=== PATIENT | male | born 1980 | race Two or more races ===

== ENCOUNTER 2021-12-09 19:54 | Inpatient (IN) | payer SELFPAY ==
[~2021-12-09] VITALS: Ht 185.4 cm; Wt 102.5 kg
[2021-12-09 20:24] LABS: BASOPHILS % 0.2 % (0.0-2.0); EOSINOPHILS % 1.3 % (0.0-5.0); HEMATOCRIT. 45.3 % (42.0-52.0); HEMOGLOBIN. 14.3 g/dL (14.0-18.0); LYMPHOCYTES % 26.8 % (20.0-50.0); MEAN CORPUSCULAR HEMOGLOBIN 25.9 pg (28.0-32.0); MEAN CORPUSCULAR VOLUME 81.9 fL (80.0-94.0); MEAN PLATELET VOLUME 9.3 fl (7.4-10.4); MONOCYTES % 5.2 % (2.0-8.0); NEUTROPHILS % 66.5 % (40.0-76.0); PLATELET 243 x1000/uL (130-400); RED BLOOD CELL COUNT 5.53 mill/uL (4.7-6.1); RED CELL DISTRIBUTION WIDTH 14.5 % (11.6-14.6)
[2021-12-09 20:35] LABS: CHLORIDE 108 mEq/L (98-107)
[2021-12-09 20:41] LABS: ETHANOL BLOOD < 10 mg/dL
[2021-12-09 21:16] LABS: CREATINE KINASE 1069 IU/L (39-308)
[2021-12-09] MEDS ORDERED: IOHEXOL-350 100 ML BOTTLE ONE (21:30)
[2021-12-09 22:16] LABS: CLARITY URINE CLEAR (CLEAR); COLOR URINE YELLOW (YELLOW); KETONES URINE NEGATIVE (NEGATIVE); LEUKOCYTE ESTERASE URINE NEGATIVE (NEGATIVE); NITRITE URINE NEGATIVE (NEGATIVE); OCCULT BLOOD URINE NEGATIVE (NEGATIVE); PH URINE 7.5 (4.5-8.0); PROTEIN URINE NEGATIVE (NEGATIVE); SPECIFIC GRAVITY URINE 1.033 (1.005-1.030)
[2021-12-09 22:25] LABS: *AMPHETAMINES SCREEN URINE NEGATIVE (NEGATIVE); *BARBITURATES SCREEN URINE NEGATIVE (NEGATIVE); *BENZODIAZEPINES SCREEN URINE NEGATIVE (NEGATIVE); *COCAINE SCREEN URINE NEGATIVE (NEGATIVE)
[2021-12-09 22:26] LABS: CANNABINOID URINE SCREEN NEGATIVE (NEGATIVE); METHADONE URINE SCREEN NEGATIVE (NEGATIVE); OPIATES URINE SCREEN NEGATIVE (NEGATIVE); PHENCYCLIDINE URINE SCREEN NEGATIVE (NEGATIVE)
[2021-12-09] MEDS ORDERED: ASPIRIN 325MG EC TABLET PO ONE (23:00)
[2021-12-09] MEDS ORDERED: *NO ASPIRIN X 24 HOURS XX SCH (23:30)
[2021-12-09] MEDS ORDERED: ALTEPLASE 100MG/VIAL IV STA (23:31)
[2021-12-09] MEDS ORDERED: ALTEPLASE IV STA (23:31)
[2021-12-09] MEDS ORDERED: ASPIRIN 81MG TABLET PO ONE (23:45)
[2021-12-10] VITALS (84 sets, daily range): BP systolic 110–223; BP diastolic 56–162
[2021-12-10] MEDS ORDERED: ALTEPLASE 50MG/VIAL IV SCH
[2021-12-10] MEDS ORDERED: *NO ASPIRIN X 24 HOURS XX SCH
[2021-12-10] MEDS ORDERED: ALTEPLASE 100MG/VIAL IV SCH
[2021-12-10] MEDS ORDERED: ONDANSETRON HCL 4MG/2ML INJ IV PRN (03:15)
[2021-12-10] MEDS: ACETAMINOPHEN 325MG TABLET PO PRN ×2 (05:03→16:09)
[2021-12-10] MEDS: CLONIDINE 0.1MG TABLET PO PRN ×2 (05:04→16:16)
[2021-12-10 06:06] LABS: BASOPHILS % 0.5 % (0.0-2.0); EOSINOPHILS % 1.8 % (0.0-5.0); HEMATOCRIT. 43.9 % (42.0-52.0); HEMOGLOBIN. 14.3 g/dL (14.0-18.0); LYMPHOCYTES % 37.2 % (20.0-50.0); MEAN CORPUSCULAR HEMOGLOBIN 25.9 pg (28.0-32.0); MEAN CORPUSCULAR VOLUME 79.7 fL (80.0-94.0); MEAN PLATELET VOLUME 9.6 fl (7.4-10.4); MONOCYTES % 6.6 % (2.0-8.0); NEUTROPHILS % 53.9 % (40.0-76.0); PLATELET 232 x1000/uL (130-400); RED BLOOD CELL COUNT 5.51 mill/uL (4.7-6.1); RED CELL DISTRIBUTION WIDTH 14.7 % (11.6-14.6)
[2021-12-10 06:24] LABS: CHLORIDE 108 mEq/L (98-107)
[2021-12-10 06:31] LABS: LDL CHOLESTEROL 120 mg/dL (5-100)
[2021-12-10 06:33] LABS: HDL CHOLESTEROL 34 mg/dL (40-59)
[2021-12-10] MEDS: PANTOPRAZOLE SODIUM 40 MG/VIAL IV SCH (08:50)
[2021-12-10] MEDS ORDERED: IPRATROPIUM/ALBUTEROL 0.5-3(2.5)MG/3ML NEB NEB PRN (09:30)
[2021-12-10] MEDS ORDERED: NITROGLYCERIN 0.4MG TABLET SL SL PRN (09:30)
[2021-12-10] MEDS ORDERED: MAGNESIUM/ALUMINUM HYDROXIDE/SIMETHICONE 30ML UDC PO PRN (09:30)
[2021-12-10] MEDS ORDERED: ZOLPIDEM TARTRATE 5MG TABLET PO PRN (09:30)
[2021-12-10] MEDS ORDERED: GUAIFENESIN 200MG/10ML SUGAR FREE UDC PO PRN (09:30)
[2021-12-10] MEDS ORDERED: DOCUSATE SODIUM 100MG CAPSULE PO PRN (09:30)
[2021-12-10] MEDS: AMLODIPINE 5MG TABLET PO SCH (10:00)
[2021-12-10 18:08] LABS: CREATINE KINASE MB FRACTION 2.5 ng/mL (0.5-3.6)
[2021-12-10] MEDS: ATORVASTATIN CALCIUM 40MG TABLET PO SCH (20:08)
[2021-12-11] VITALS (47 sets, daily range): BP systolic 122–196; BP diastolic 57–130
[2021-12-11 00:29] LABS: CREATINE KINASE MB FRACTION 1.8 ng/mL (0.5-3.6)
[2021-12-11 06:22] LABS: BASOPHILS % 0.4 % (0.0-2.0); EOSINOPHILS % 1.9 % (0.0-5.0); HEMATOCRIT. 44.2 % (42.0-52.0); HEMOGLOBIN. 14.3 g/dL (14.0-18.0); LYMPHOCYTES % 28.8 % (20.0-50.0); MEAN CORPUSCULAR HEMOGLOBIN 25.8 pg (28.0-32.0); MEAN CORPUSCULAR VOLUME 79.7 fL (80.0-94.0); MEAN PLATELET VOLUME 9.7 fl (7.4-10.4); MONOCYTES % 6.6 % (2.0-8.0); NEUTROPHILS % 62.3 % (40.0-76.0); PLATELET 228 x1000/uL (130-400); RED BLOOD CELL COUNT 5.54 mill/uL (4.7-6.1); RED CELL DISTRIBUTION WIDTH 14.5 % (11.6-14.6)
[2021-12-11] MEDS: CLONIDINE 0.1MG TABLET PO PRN (06:30)
[2021-12-11 06:48] LABS: CHLORIDE 106 mEq/L (98-107)
[2021-12-11 06:49] LABS: PHOSPHORUS 3.4 mg/dL (2.5-4.9)
[2021-12-11] MEDS: PANTOPRAZOLE SODIUM 40 MG/VIAL IV SCH (08:35)
[2021-12-11] MEDS: ACETAMINOPHEN 325MG TABLET PO PRN (08:35)
[2021-12-11] MEDS: CLOPIDOGREL 75MG TABLET PO SCH (08:35)
[2021-12-11] MEDS: AMLODIPINE 5MG TABLET PO SCH ×2 (08:35→18:37)
[2021-12-11] MEDS: ATORVASTATIN CALCIUM 40MG TABLET PO SCH (20:31)
[2021-12-11] MEDS: LISINOPRIL 10MG TABLET PO SCH (20:32)
[2021-12-12] VITALS (17 sets, daily range): BP systolic 97–162; BP diastolic 61–104
[2021-12-12] MEDS: CLONIDINE 0.1MG TABLET PO PRN (04:06)
[2021-12-12] MEDS: AMLODIPINE 5MG TABLET PO SCH ×2 (06:23→17:59)
[2021-12-12] MEDS: PANTOPRAZOLE SODIUM 40 MG/VIAL IV SCH (09:23)
[2021-12-12] MEDS: CLOPIDOGREL 75MG TABLET PO SCH (09:23)
[2021-12-12] MEDS: LISINOPRIL 10MG TABLET PO SCH ×2 (09:25→21:04)
[2021-12-12] MEDS ORDERED: LISINOPRIL 10MG TABLET PO NR (10:00)
[2021-12-12] MEDS: HYDRALAZINE HCL 50MG TABLET PO SCH ×2 (15:25→21:03)
[2021-12-12] MEDS: ATORVASTATIN CALCIUM 40MG TABLET PO SCH (21:04)
[2021-12-13] VITALS: BP 117/68
[2021-12-13 04:00] VITALS: BP 131/88
[2021-12-13 05:00] VITALS: BP 147/57
[2021-12-13] MEDS: HYDRALAZINE HCL 50MG TABLET PO SCH (05:04)
[2021-12-13] MEDS: AMLODIPINE 5MG TABLET PO SCH (05:05)
[2021-12-13 07:41] VITALS: BP 164/95
[2021-12-13] MEDS: LISINOPRIL 10MG TABLET PO SCH (08:50)
[2021-12-13] MEDS: CLOPIDOGREL 75MG TABLET PO SCH (08:50)
[2021-12-13] MEDS ORDERED: FAMOTIDINE 20MG/2ML VIAL IV SCH (09:00)
[2021-12-13] MEDS ORDERED: CLOP75TA15 PO (10:09)
[2021-12-13] MEDS ORDERED: LISI10TA26 PO (10:09)
[2021-12-13] MEDS ORDERED: AMLO5TAB88 PO (10:09)
[2021-12-13] MEDS ORDERED: LIP40 PO (10:09)
[2021-12-13] MEDS ORDERED: HYDR-4135 PO (10:09)
[2021-12-13] MEDS ORDERED: PEPJ2 IV ×2 (10:09)
[2021-12-13] MEDS ORDERED: FAMO-135 MT (11:44)
== END 2021-12-13 16:05 | disposition home or self-care (01) | DRG 45 ==
LOC: ER 19:54 → 7WST 22:49 → EDBEDREQSVC 22:53 → EDBEDREQ 22:53 → EDBEDREQTM 22:53 → ENRESERV 23:12 → CVICU 23:39 → ENRESERV 12-10 05:46 → CANBEDREQ 12-10 18:58 → 8WST 12-12 10:42
PROVIDERS: ADMIT Internal Medicine; ATTEND Internal Medicine
DX: I63.9 Cerebral infarction, unspecified (principal); F41.9 Anxiety disorder, unspecified; I10 Essential (primary) hypertension; I16.1 Hypertensive emergency; R53.1 Weakness; R42 Dizziness and giddiness; R29.700 NIHSS score 0
CPT/HCPCS: 36415; 70496; 70498; 70551; 71045; 80048; 80053; 80061; 80305; 80320; 81003; 82550; 82553; 82962; 83036; 83605; 83735; 83880; 84100; 84484; 85025; 92610; 93005; 93306; 93970; 97112; 97116; 97161; 97166; 97530; 97535; 99285; C9113; J2997; J3490; Q9967; G0480